=== PATIENT | female | born 1960 ===

== ENCOUNTER 2017-10-28 22:18 | Observation (INO) | payer SELFPAY ==
[2017-10-28 23:29] VITALS: BMI 25.3
[2017-10-29] MEDS ORDERED: Sodium Chloride 0.9% 1,000 ML IV STA (00:08)
[2017-10-29] MEDS ORDERED: Albuterol-Ipratrop 3 mg / 0.5 (3 ml) UD IH STA (00:08)
[2017-10-29] MEDS ORDERED: Sodium Chloride 0.9% 500 ML IV STA (00:10)
--- NOTE | 2017-10-29 00:12 | ED PDOC ---
HPI: CCC, URI, Sore Throat Time Seen by Provider: 10/28/17 23:42 Chief Complaint (Nursing): Flu-like Symptoms Chief Complaint (Provider): flu-like symptoms History Per: Patient, Family History/Exam Limitations: no limitations Onset/Duration Of Symptoms: Days (3) Current Symptoms Are (Timing): Still Present Additional History Per: Patient, Family Additional Complaint(s): 57 y/o female history of hypertension presents with flu-like symptoms x 3 days. Patient reports fever, nasal congestion, cough. Patient was diagnosed with muscle spasms of back 15 days ago, says since she has been coughing the pain has been getting worse. Patient also notes chest pain with radiation to left arm that began today. Patient taking Tylenol without improvement. Denies headache, dizziness, extremity numbness/weakness, vomiting, shortness of breath , abdominal pain, changes in bowel movement, recent travel, sick contacts. Patient states she was evaluated by her primary doctor today and sent to the ED because of her elevated blood pressures and complaints of chest pain. Past Medical History Reviewed: Historical Data, Nursing Documentation, Vital Signs Vital Signs: Last Vital Signs Temp 99.1 F 10/29/17 01:01 Pulse 89 10/29/17 01:01 Resp 16 10/29/17 01:01 BP 127/77 10/29/17 01:01 Pulse Ox 100 10/29/17 01:46 - Medical History PMH: HTN, Hypercholesterolemia, Migraine Denies: HIV, Chronic Kidney Disease - Surgical History Other surgeries: knee replacement - Family History Family History: States: Unknown Family Hx - Home Medications Home Medications: Ambulatory Orders Medication Instructions Recorded Aspirin [Aspirin EC] 81 mg PO DAILY #0 ect 09/14/15 Carvedilol [Coreg] 1 tab PO BID 10/29/17 Losartan/Hydrochlorothiazide 1 tab PO DAILY 10/29/17 [Losartan-Hctz 50-12.5 mg Tab] - Allergies Allergies/Adverse Reactions: Allergies Allergy/AdvReac Type Severity Reaction Status Date / Time No Known Allergies Allergy Verified 10/28/17 23:28 Review of Systems ROS Statement: Except As Marked, All Systems Reviewed And Found Negative Constitutional: Positive for: Fever, Chills, Weakness ENT: Positive for: Nose Congestion Cardiovascular: Positive for: Chest Pain Respiratory: Positive for: Cough Musculoskeletal: Positive for: Back Pain Physical Exam - Reviewed Nursing Documentation Reviewed: Yes Vital Signs Reviewed: Yes - Physical Exam Appears: Positive for: Well, Non-toxic, No Acute Distress Head Exam: Positive for: ATRAUMATIC, NORMAL INSPECTION, NORMOCEPHALIC Skin: Positive for: Normal Color Eye Exam: Positive for: Normal appearance ENT: Positive for: Nasal Congestion Cardiovascular/Chest: Positive for: Regular Rate, Rhythm Respiratory: Positive for: Normal Breath Sounds Gastrointestinal/Abdominal: Positive for: Normal Exam Back: Positive for: Normal Inspection Extremity: Positive for: Normal ROM Neurologic/Psych: Positive for: Alert, Oriented - Laboratory Results Result Diagrams: 10/29/17 00:20 10/29/17 00:20 - ECG ECG: Positive for: Viewed By Me ECG Rhythm: Positive for: Sinus Rhythm O2 Sat by Pulse Oximetry: 100 Pulse Ox Interpretation: Normal - Radiology X-Ray: Viewed By [place] X-Ray Interpretation: No Acute Disease - Progress ED Course And Treament: labs, flu, chest xray, IV toradol, IV fluids Patient Flu A+; will order Tamiflu Case discussed with FP resident on-call for placement in observation telemetry for chest pain. Disposition - Clinical Impression Clinical Impression: Chest pain, Influenza A, Hypertension - Patient ED Disposition Is Patient to be Admitted: Yes - Disposition Disposition Time: 01:46 Condition: FAIR
[2017-10-29 00:39] LABS: VENOUS BLOOD GAS BASE EXCESS 6.9 mmol/L (0.0-2.0); VENOUS BLOOD GAS PCO2 52 mmHg (40-60); VENOUS BLOOD GAS PO2 36 mm/Hg (30-55); VENOUS BLOOD PH 7.41 (7.32-7.43)
[2017-10-29 00:51] LABS: BASO % 0.5 % (0.0-2.0); EOS # 0.1 K/uL (0.0-0.7); EOS % 2.7 % (0.0-4.0); HEMOGLOBIN 12.1 g/dL (12.0-16.0); LYMPH # 0.7 K/uL (1.0-4.3); LYMPH % 16.5 % (20.0-40.0); MEAN CELL VOLUME 85.7 fl (81.0-99.0); MEAN CORPUSCULAR HEMOGLOBIN 28.9 pg (27.0-31.0); MEAN CORPUSCULAR HGB CONC 33.8 g/dL (33.0-37.0); MEAN PLATELET VOLUME 9.4 fl (7.2-11.7); MONO # 0.8 K/uL (0.0-0.8); MONO % 18.9 % (0.0-10.0); NEUT # 2.6 K/uL (1.8-7.0); NEUT % 61.4 % (50.0-75.0); NRBC % 0.3 % (0.0-0.0); RBC 4.18 Mil/uL (3.80-5.20); RED CELL DISTRIBUTION WIDTH 13.6 % (11.5-14.5); WHITE BLOOD COUNT 4.2 K/uL (4.8-10.8)
[2017-10-29] MEDS ORDERED: Albuterol-Ipratrop 3 mg / 0.5 (3 ml) UD ONE (00:54)
[2017-10-29 00:58] LABS: ALB/GLOB RATIO 1.3 (1.0-2.1); ALBUMIN 4.5 g/dL (3.5-5.0); ALT/SGPT 44 U/L (9-52); AST/SGOT 26 U/L (14-36); BLOOD UREA NITROGEN 9 mg/dl (7-17); CALCIUM 9.7 mg/dL (8.4-10.2); GFR AFRICAN-AMERICAN > 60; GFR NON-AFRICAN AMERICAN > 60
--- NOTE | 2017-10-29 02:33 | CP.PCM.HP ---
History of Present Illness - History of Present Illness History of Present Illness: 57 yo ,f, PMhx/o HTN,Psoriasis presents to ED with flu-like symptoms x 3 days. She c/o greenish productive cough for the last 3 days associated with fever 102 and central chest pain for the last 3 days, intermittent, sharp, that occurs only when she cough. she denies SOB, dysuria, hematuria. Patient reports that she started with lower back pain for the last 2 weeks, was evaluated in ED of other hospital and was said she had muscle strain and was prescribed tylenol for pain. Mine was evaluated today in our clinic, EKG normal, but patient was advised to come to ED for evaluation of chest pain. PMD: CFH: DR Golden Allergies: NKDA Meds: Carvedidol 25 mg daily. Losartan/Hctz 50/12.5. Aspirin 81 mg daily PSurghx: Right Knee replacement FHx: Fathe from [place], Mother from [place]F PSHx: No Etoh, rect drugs, cig ED Course VS: Normal Labs: CBC: WBC: 4.2 VBG COPD 34.6 trop x1 neg, EKG normal. Influenza test positive Imaging: CXR: no infiltrates. prominent bronchial markings. pending report. Meds: Tamiflu x 1 dose, flexeril, toradol, IV fluids 1L NS Present on Admission - Present on Admission Any Indicators Present on Admission: No History of DVT/PE: No History of Uncontrolled Diabetes: No Review of Systems - Constitutional Constitutional: As Per HPI - Respiratory Respiratory: As Per HPI, Cough - Gastrointestinal Gastrointestinal: As Per HPI - Genitourinary Genitourinary: As Per HPI Past Patient History - Infectious Disease Hx of Infectious Diseases: None - Past Medical History & Family History Past Medical History?: Yes - Past Social History Smoking Status: Never Smoked - CARDIAC Hx Hypercholesterolemia: Yes Hx Hypertension: Yes - PULMONARY Hx Respiratory Disorders: No - NEUROLOGICAL Hx Migraine: Yes - HEENT Hx HEENT Problems: No - RENAL Hx Chronic Kidney Disease: No - ENDOCRINE/METABOLIC Hx Endocrine Disorders: No - HEMATOLOGICAL/ONCOLOGICAL Hx Human Immunodeficiency Virus (HIV): No - INTEGUMENTARY Hx Dermatological Problems: Yes Hx Psoriasis: Yes - MUSCULOSKELETAL/RHEUMATOLOGICAL Hx Musculoskeletal Disorders: No - GASTROINTESTINAL Hx Gastrointestinal Disorders: No - GENITOURINARY/GYNECOLOGICAL Hx Genitourinary Disorders: No - PSYCHIATRIC Hx Psychophysiologic Disorder: No Hx Substance Use: No - SURGICAL HISTORY Hx Surgeries: Yes Hx Orthopedic Surgery: Yes (Right knee sx, Left foot sx) - ANESTHESIA Hx Anesthesia: No Meds Allergies/Adverse Reactions: Allergies Allergy/AdvReac Type Severity Reaction Status Date / Time No Known Allergies Allergy Verified 10/28/17 23:28 Physical Exam - Constitutional Appears: Non-toxic, No Acute Distress - Head Exam Head Exam: ATRAUMATIC, NORMOCEPHALIC - Eye Exam Eye Exam: Normal appearance - ENT Exam ENT Exam: Mucous Membranes Moist - Neck Exam Neck exam: Positive for: Normal Inspection - Respiratory Exam Respiratory Exam: Clear to Auscultation Bilateral. absent: Rales, Rhonchi - Cardiovascular Exam Cardiovascular Exam: REGULAR RHYTHM, +S1, +S2 - GI/Abdominal Exam GI & Abdominal Exam: Normal Bowel Sounds, Soft. absent: Tenderness - Extremities Exam Extremities exam: Positive for: normal inspection. Negative for: pedal edema - Back Exam Back exam: NORMAL INSPECTION, paraspinal tenderness. absent: CVA tenderness (L) , CVA tenderness (R) - Neurological Exam Neurological exam: Alert, Oriented x3 - Psychiatric Exam Psychiatric exam: Normal Mood - Skin Skin Exam: Intact Results - Vital Signs Recent Vital Signs: Last Vital Signs Temp 99.1 F 10/29/17 01:01 Pulse 89 10/29/17 01:01 Resp 16 10/29/17 01:01 BP 127/77 10/29/17 01:01 Pulse Ox 100 10/29/17 01:46 - Labs Result Diagrams: 10/29/17 04:40 10/29/17 04:40 Labs: Laboratory Results - last 24 hr 10/29/17 10/29/17 10/29/17 00:20 00:20 00:20 WBC 4.2 L RBC 4.18 Hgb 12.1 Hct 35.8 MCV 85.7 MCH 28.9 MCHC 33.8 RDW 13.6 Plt Count 222 MPV 9.4 Neut % (Auto) 61.4 Lymph % (Auto) 16.5 L Wharton % (Auto) 18.9 H Eos % (Auto) 2.7 Baso % (Auto) 0.5 Neut # (Auto) 2.6 Lymph # (Auto) 0.7 L Wharton # (Auto) 0.8 Eos # (Auto) 0.1 Baso # (Auto) 0.0 pO2 36 VBG pH 7.41 VBG pCO2 52 VBG HCO3 29.6 VBG Total CO2 34.6 H VBG O2 Sat (Calc) 72.0 H VBG Base Excess 6.9 H VBG Potassium 3.4 L Sodium 136 135.0 Chloride 95 L 98.0 Glucose 100 Lactate 1.2 FiO2 21.0 Potassium 3.5 L Carbon Dioxide 32 H Anion Gap 13 BUN 9 Creatinine 0.6 L Est GFR ( Amer) > 60 Est GFR (Non-Af Amer) > 60 Random Glucose 100 Calcium 9.7 Total Bilirubin 0.5 AST 26 ALT 44 Alkaline Phosphatase 64 Troponin I < 0.0120 Total Protein 8.0 Albumin 4.5 Globulin 3.5 Albumin/Globulin Ratio 1.3 Venous Blood Potassium 3.4 L Influenza Typ A,B (EIA) 10/29/17 00:26 WBC RBC Hgb Hct MCV MCH MCHC RDW Plt Count MPV Neut % (Auto) Lymph % (Auto) Wharton % (Auto) Eos % (Auto) Baso % (Auto) Neut # (Auto) Lymph # (Auto) Wharton # (Auto) Eos # (Auto) Baso # (Auto) pO2 VBG pH VBG pCO2 VBG HCO3 VBG Total CO2 VBG O2 Sat (Calc) VBG Base Excess VBG Potassium Sodium Chloride Glucose Lactate FiO2 Potassium Carbon Dioxide Anion Gap BUN Creatinine Est GFR ( Amer) Est GFR (Non-Af Amer) Random Glucose Calcium Total Bilirubin AST ALT Alkaline Phosphatase Troponin I Total Protein Albumin Globulin Albumin/Globulin Ratio Venous Blood Potassium Influenza Typ A,B (EIA) Pos for influenza a H Assessment & Plan - Assessment and Plan (Free Text) Plan: 57 yo ,f, PMhx/o HTN,Psoriasis presents to ED with flu-like symptoms x 3 days admitted for chest pain and INfluenza assessment/Plan 1) chest pain -reproducible secondary to costochondritis and cough -to r/o ACS -Troponin x 1 normal -EKG normal -f/u troponin x 2, f/u EKG 2) Influenza -influenza A positive -tamiflu 75 mg BID x 5 days -duoneb [place] SOB -tylenol PRN fever 3) HTN -c/w home meds -4) Hypokalemia -K:3.4 -kdur 20 mg once 5) DVT Prophylaxis -Lovenox 40 mg sc daily
[2017-10-29 05:36] LABS: ALB/GLOB RATIO 1.2 (1.0-2.1); ALBUMIN 3.5 g/dL (3.5-5.0); ALT/SGPT 33 U/L (9-52); AST/SGOT 23 U/L (14-36); BLOOD UREA NITROGEN 9 mg/dl (7-17); CALCIUM 8.3 mg/dL (8.4-10.2); GFR AFRICAN-AMERICAN > 60; GFR NON-AFRICAN AMERICAN > 60
[2017-10-29] MEDS ORDERED: Potassium Chloride 20 mEq ER Tab PO ONE ×2 (06:21→08:05)
[2017-10-29 06:35] LABS: SQUAMOUS EPITHIAL < 1 /hpf (0-5); URINE BILIRUBIN NEGATIVE (NEGATIVE); URINE BLOOD SMALL (NEGATIVE); URINE CLARITY CLEAR (Clear); URINE COLOR YELLOW (YELLOW); URINE GLUCOSE (UA) NEG (Normal); URINE LEUKOCYTE ESTERASE NEG Leu/uL (Negative); URINE NITRATE NEGATIVE (NEGATIVE); URINE PROTEIN NEGATIVE (NEGATIVE); URINE UROBILINOGEN 0.2-1.0 mg/dL (0.2-1.0)
[2017-10-29 07:05] LABS: BASO % 0.5 % (0.0-2.0); EOS # 0.1 K/uL (0.0-0.7); EOS % 2.5 % (0.0-4.0); HEMOGLOBIN 10.2 g/dL (12.0-16.0); LYMPH # 0.7 K/uL (1.0-4.3); LYMPH % 20.5 % (20.0-40.0); MEAN CELL VOLUME 86.4 fl (81.0-99.0); MEAN CORPUSCULAR HEMOGLOBIN 28.3 pg (27.0-31.0); MEAN CORPUSCULAR HGB CONC 32.8 g/dL (33.0-37.0); MEAN PLATELET VOLUME 8.8 fl (7.2-11.7); MONO # 0.6 K/uL (0.0-0.8); NEUT % 59.5 % (50.0-75.0); NRBC % 0.1 % (0.0-0.0); RBC 3.61 Mil/uL (3.80-5.20); RED CELL DISTRIBUTION WIDTH 13.7 % (11.5-14.5); WHITE BLOOD COUNT 3.4 K/uL (4.8-10.8)
[2017-10-29] MEDS ORDERED: Enoxaparin 40 mg Syringe SC SCH (09:00)
[2017-10-29] MEDS ORDERED: HCTZ/Losartan 12.5/50 Tab PO SCH (09:00)
--- NOTE | 2017-10-29 09:39 | CP.PCM.PN ---
Subjective - Date & Time of Evaluation Date of Evaluation: 10/29/17 Time of Evaluation: 08:45 Objective - Vital Signs/Intake and Output Vital Signs (last 24 hours): Temp Pulse Resp BP Pulse Ox 99.1 F 85 17 144/80 98 10/29/17 08:15 10/29/17 08:15 10/29/17 08:15 10/29/17 08:15 10/29/17 08:15 - Medications Medications: Current Medications Acetaminophen (Tylenol 325mg Tab) 650 mg PO Q6 PRN PRN Reason: Fever >100.4 F Aspirin (Ecotrin) 81 mg PO DAILY ELE Carvedilol (Coreg) 25 mg PO DAILY ELE Enoxaparin Sodium (Lovenox) 40 mg SC DAILY ELE PRN Reason: Protocol HCTZ/Losartan Potassium (Hyzaar 12.5 Mg-50 Mg) 1 tab PO DAILY ELE Ibuprofen (Motrin Tab) 600 mg PO Q6 PRN PRN Reason: Pain, moderate (4-7) Ketorolac Tromethamine (Toradol) 30 mg IVP Q6 PRN PRN Reason: Pain, severe (8-10) Oseltamivir Phosphate (Tamiflu Cap) 75 mg PO BID ELE PRN Reason: Protocol - Labs Labs: 10/29/17 04:40 10/29/17 04:40
--- NOTE | 2017-10-29 11:29 | RAD ---
HISTORY: fever, cough, chest pain COMPARISON: Comparison is made with 09/29/2015 TECHNIQUE: Chest PA and lateral FINDINGS: LUNGS: No evidence of new infiltrate or consolidation in the lungs PLEURA: No significant pleural effusion identified. No pneumothorax apparent. CARDIOVASCULAR: Normal. OSSEOUS STRUCTURES: No significant abnormalities. VISUALIZED UPPER ABDOMEN: Normal. OTHER FINDINGS: None. IMPRESSION: No radiographic evidence of pneumonia.
[2017-10-29] MEDS ORDERED: Potassium Chloride 10 mEq ER Tab PO ONE ×2 (12:13→13:25)
[2017-10-29 13:17] VITALS: BP 108/73; PULSE 79; RESP 23; TEMP 98.5; O2SAT 97
--- NOTE | 2017-10-29 14:06 | CP.PCM.DIS ---
Provider - Provider Date of Admission: 10/29/17 01:41 Attending physician: Petra Larios MD Time Spent in preparation of Discharge (in minutes): 25 Diagnosis - Discharge Diagnosis (1) Influenza A Status: Acute Hospital Course - Lab Results Lab Results: Most Recent Lab Values WBC 3.4 K/uL (4.8-10.8) L 10/29/17 04:40 RBC 3.61 Mil/uL (3.80-5.20) L 10/29/17 04:40 Hgb 10.2 g/dL (12.0-16.0) L 10/29/17 04:40 Hct 31.2 % (34.0-47.0) L 10/29/17 04:40 MCV 86.4 fl (81.0-99.0) 10/29/17 04:40 MCH 28.3 pg (27.0-31.0) 10/29/17 04:40 MCHC 32.8 g/dL (33.0-37.0) L 10/29/17 04:40 RDW 13.7 % (11.5-14.5) 10/29/17 04:40 Plt Count 166 K/uL (130-400) 10/29/17 04:40 MPV 8.8 fl (7.2-11.7) 10/29/17 04:40 Gran % Cancelled 10/29/17 04:40 Neut % (Auto) 59.5 % (50.0-75.0) 10/29/17 04:40 Lymph % (Auto) 20.5 % (20.0-40.0) 10/29/17 04:40 [place] % (Auto) 17.0 % (0.0-10.0) H 10/29/17 04:40 Eos % (Auto) 2.5 % (0.0-4.0) 10/29/17 04:40 Baso % (Auto) 0.5 % (0.0-2.0) 10/29/17 04:40 Gran # Cancelled 10/29/17 04:40 Neut # (Auto) 2.0 K/uL (1.8-7.0) 10/29/17 04:40 Lymph # (Auto) 0.7 K/uL (1.0-4.3) L 10/29/17 04:40 [place] # (Auto) 0.6 K/uL (0.0-0.8) 10/29/17 04:40 Eos # (Auto) 0.1 K/uL (0.0-0.7) 10/29/17 04:40 Baso # (Auto) 0.0 K/uL (0.0-0.2) 10/29/17 04:40 pO2 36 mm/Hg (30-55) 10/29/17 00:20 VBG pH 7.41 (7.32-7.43) 10/29/17 00:20 VBG pCO2 52 mmHg (40-60) 10/29/17 00:20 VBG HCO3 29.6 mmol/L 10/29/17 00:20 VBG Total CO2 34.6 mmol/L (22-28) H 10/29/17 00:20 VBG O2 Sat (Calc) 72.0 % (40-65) H 10/29/17 00:20 VBG Base Excess 6.9 mmol/L (0.0-2.0) H 10/29/17 00:20 VBG Potassium 3.4 mmol/L (3.6-5.2) L 10/29/17 00:20 Sodium 135.0 mmol/L (132-148) 10/29/17 00:20 Chloride 98.0 mmol/L (98-107) 10/29/17 00:20 Glucose 100 mg/dL (65-105) 10/29/17 00:20 Lactate 1.2 mmol/L (0.7-2.1) 10/29/17 00:20 FiO2 21.0 % 10/29/17 00:20 Sodium 137 mmol/l (132-148) 10/29/17 04:40 Potassium 3.4 MMOL/L (3.6-5.0) L 10/29/17 04:40 Chloride 102 mmol/L (98-107) 10/29/17 04:40 Carbon Dioxide 29 mmol/L (22-30) 10/29/17 04:40 Anion Gap 9 (10-20) L 10/29/17 04:40 BUN 9 mg/dl (7-17) 10/29/17 04:40 Creatinine 0.7 mg/dl (0.7-1.2) 10/29/17 04:40 Est GFR ( Amer) > 60 10/29/17 04:40 Est GFR (Non-Af Amer) > 60 10/29/17 04:40 Random Glucose 91 mg/dL (65-105) 10/29/17 04:40 Calcium 8.3 mg/dL (8.4-10.2) L 10/29/17 04:40 Total Bilirubin 0.4 mg/dl (0.2-1.3) 10/29/17 04:40 AST 23 U/L (14-36) 10/29/17 04:40 ALT 33 U/L (9-52) 10/29/17 04:40 Alkaline Phosphatase 49 U/L (38-126) 10/29/17 04:40 Troponin I < 0.0120 ng/mL (0.00-0.120) 10/29/17 08:35 Total Protein 6.4 G/DL (6.3-8.2) 10/29/17 04:40 Albumin 3.5 g/dL (3.5-5.0) D 10/29/17 04:40 Globulin 2.9 gm/dL (2.2-3.9) 10/29/17 04:40 Albumin/Globulin Ratio 1.2 (1.0-2.1) 10/29/17 04:40 Venous Blood Potassium 3.4 mmol/L (3.6-5.2) L 10/29/17 00:20 Urine Color Yellow (YELLOW) 10/29/17 06:25 Urine Clarity Clear (Clear) 10/29/17 06:25 Urine pH 6.0 (5.0-8.0) 10/29/17 06:25 Ur Specific Aldrich 1.009 (1.003-1.030) 10/29/17 06:25 Urine Protein Negative mg/dL (NEGATIVE) 10/29/17 06:25 Urine Glucose (UA) Neg mg/dL (Normal) 10/29/17 06:25 Urine Ketones Negative mg/dL (NEGATIVE) 10/29/17 06:25 Urine Blood Small (NEGATIVE) 10/29/17 06:25 Urine Nitrate Negative (NEGATIVE) 10/29/17 06:25 Urine Bilirubin Negative (NEGATIVE) 10/29/17 06:25 Urine Urobilinogen 0.2-1.0 mg/dL (0.2-1.0) 10/29/17 06:25 Ur Leukocyte Esterase Neg Lucy/uL (Negative) 10/29/17 06:25 Urine RBC (Auto) 2 /hpf (0-3) 10/29/17 06:25 Urine Microscopic WBC < 1 /hpf (0-5) 10/29/17 06:25 Ur Squamous Epith Cells < 1 /hpf (0-5) 10/29/17 06:25 Hyaline Casts 3-5 /hpf (0-2) H 10/29/17 06:25 Influenza Typ A,B (EIA) Pos for influenza a (NEGATIVE) H 10/29/17 00:26 - Hospital Course Hospital Course: 57 yo f, PMhx/o HTN, Psoriasis presents to ED with flu-like symptoms x 3 days admitted for chest pain and Influenza. ACS ruled out; Pt clarified post-tussive chest discomfort. Influenza positive. Pt offered tamiflu, however, refused due to concerns for exacerbating influenza symptoms. Pt given ER precautions. Discharge Exam - Head Exam Head Exam: ATRAUMATIC, NORMOCEPHALIC Discharge Plan - Follow Up Plan Condition: FAIR Disposition: HOME/ ROUTINE Patient education suggested?: Yes Instructions: Hypertension (DC), Hypertension (GEN)
--- NOTE | 2017-10-29 17:08 | CARD ---
APPROVED REPORT EKG Measurement Heart [id number] <Conclusion> Normal sinus rhythm Normal ECG
--- NOTE | 2017-10-29 17:10 | CARD ---
APPROVED REPORT EKG Measurement Heart [id number] <Conclusion> Normal sinus rhythm Possible Left atrial enlargement Borderline ECG
== END 2017-10-29 15:24 | disposition home or self-care (01) ==
LOC: H.ER 22:18 → H.ERHOLD 10-29 01:41
PROVIDERS: ADMIT Family Medicine Geriatric Medicine; ATTEND Family Medicine Geriatric Medicine
DX: J10.1 Influenza due to other identified influenza virus with other respiratory manifestations (principal); E78.00 Pure hypercholesterolemia, unspecified; E87.6 Hypokalemia; I10 Essential (primary) hypertension; M94.0 Chondrocostal junction syndrome [Tietze]; Z79.82 Long term (current) use of aspirin; Z96.651 Presence of right artificial knee joint; G43.909 Migraine, unspecified, not intractable, without status migrainosus; L40.9 Psoriasis, unspecified; M54.5 Low back pain; M62.830 Muscle spasm of back
CPT/HCPCS: 71046; 80053; 81003; 82803; 84484; 85025; 87040; 87086; 87804; 93005; 96372; 96374; 96376; 99284; G0378; J1650; J1885; J7040